=== PATIENT | male | born 1960 | race Caucasian/White ===

== ENCOUNTER 2018-01-12 11:35 | Day surgery (SDC) | END 2018-01-12 18:15 | disposition home or self-care (01) ==

== ENCOUNTER 2018-06-12 06:09 | Day surgery (SDC) | payer OTHER ==
[2018-06-09 16:55] VITALS: BMI 24.3
[~2018-06-12] VITALS: Ht 170.2 cm; Wt 67.5 kg
[2018-06-12] VITALS (11 sets, daily range): BP systolic 79–125; BP diastolic 56–76; PULSE 52–60; RESP 11–18; Ht 170.2 cm; Wt 67.5 kg
[2018-06-12] MEDS ORDERED: PROPARACAINE 0.5% 15 ML OPH RIGHT EYE SCH (07:00)
--- NOTE | 2018-06-12 07:23 | PREAC ---
Date/Time of Note Date/Time of Note DATE: 06/12/18 TIME: 07: Anesthesia Eval and Record Evaluation Time Pre-Procedure Interview DATE: 06/12/18 TIME: :22 Age 57 Sex male NPO: 8 hrs Preoperative diagnosis R eye pterygium Planned procedure R eye pterygium excision Past Medical History Past Medical History: Includes Cardio: Dyslipidemia Surgery & Anesthesia Issues No known issue Meds Anticoagulation: No Beta Alejo within 24 hr: No Reason Beta Alejo not given: Pt. not on B-Alejo No Active Prescriptions or Reported Meds Current Medications Proparacaine HCl (Alcaine 0.5%) 1 drop Q5MIN X 3 RIGHT EYE Last administered on 06/12/18at 07:16; Admin Dose 1 DROP; Start 06/12/18 at 07:00; Stop 06/12/18 at 17:00 Meds reviewed: Yes Allergies Coded Allergies: Milk Containing Products (Verified Allergy, Unknown, 01/12/18) almond (Verified Allergy, Unknown, 01/12/18) olive extract (Verified Allergy, Unknown, 01/12/18) Allergies Reviewed: Yes Labs/Studies Labs Reviewed: Reviewed by anesthesiologist test: N/A Studies: ECG (nml nsr), CXR (no active dz) Pre-procedure Exam Airway: Adequate mouth opening, Adequate thyromental dist Mallampati: Mallampati II Teeth: Normal Lung: Normal Heart: Normal ASA Physical Status ASA physical status: 2 Emergency: None Planned Anesthetic General/MAC: MAC Pre-operative Attestations Prior to commencing anesthesia and surgery, the patient was re-evaluated, there was verification of: *The patient's identity *The results of appropriate recent lab work and preoperative vital signs *The above evaluation not changing prior to induction *Anesthetic plan, risk benefits, alternative and complications discussed with patient/family; questions answered; patient/family understands, accepts and wishes to proceed. SANDRA YO Jun 12, 2018 07:23
[2018-06-12] MEDS ORDERED: LABETALOL HCL 20MG INJ IV PRN (07:30)
[2018-06-12] MEDS ORDERED: DIPHENHYDRAMINE 50 MG INJ IV PRN (07:30)
[2018-06-12] MEDS ORDERED: hydrALAzine 20 MG INJ IV PRN (07:30)
[2018-06-12] MEDS ORDERED: ACETAMINOPHEN 500 MG TAB PO PRN (07:30)
[2018-06-12] MEDS ORDERED: ONDANSETRON 4 MG INJ IV PRN (07:30)
[2018-06-12] MEDS ORDERED: FENTAnyl 50 MCG/ML VIAL IV PRN (07:30)
[2018-06-12] MEDS ORDERED: ALBUTEROL 0.083% (NEB) 2.5 MG/3 ML AMP HHN PRN (07:30)
[2018-06-12] MEDS ORDERED: OXYCODONE/ACETAMINOPHEN (5/325) TAB PO PRN (07:30)
[2018-06-12] MEDS ORDERED: ACETAMINOPHEN 325 MG TAB PO PRN (07:30)
[2018-06-12] MEDS ORDERED: BUPIVACAINE 0.5% (SDV) 30 ML INJ ONE (07:40)
[2018-06-12] MEDS ORDERED: TOBRAMYCIN/DEXAMETH 2.5 ML OPH ONE (07:41)
[2018-06-12] MEDS ORDERED: LIDOCAINE 2% (SDV) 5 ML INJ ONE (07:49)
[2018-06-12] MEDS ORDERED: PROPOFOL 20 ML ONE (07:49)
[2018-06-12] MEDS ORDERED: MIDAZOLAM 1 MG/ML 2 ML INJ ONE (08:23)
[2018-06-12] MEDS ORDERED: LIDOCAINE 2%/EPI (MDV) 20ML INJ INJ ONE (08:27)
[2018-06-12] MEDS ORDERED: FENTAnyl 50 MCG/ML VIAL ONE (08:28)
--- NOTE | 2018-06-12 08:33 | HPN ---
Date/Time of Note Date/Time of Note DATE: 06/12/18 TIME: 08:32 Interval H&P Admission Note Pt. seen H&P reviewed: No system changes YANELIS SHAW MD Jun 12, 2018 08:33
--- NOTE | 2018-06-12 09:22 | PAC ---
Date/Time of Note Date/Time of Note DATE: 06/12/18 TIME: 09:21 Post-Anesthesia Notes Post-Anesthesia Note Last documented vital signs Vital Signs Date Temp Pulse Resp B/P (MAP) Pulse Ox O2 O2 Flow FiO2 Time Delivery Rate 06/12/18 98.4 99.6 63 18 97/66 99 RA 07:31 091 9 06/12/18 52 18 97/68 97 Room Air 07:21 (78) Activity: WNL Respiratory function: WNL Cardiovascular function: WNL Mental status: Baseline Pain reasonably controlled: Yes Hydration appropriate: Yes Nausea/Vomiting absent: Yes SANDRA YO Jun 12, 2018 09:22
[2018-06-12] MEDS ORDERED: TOBRAMYCIN/DEXAMETH 3.5 GM OPH OINT ONE (09:35)
[2018-06-12] MEDS ORDERED: TETRACAINE 0.5% 4 ML OPH ONE (09:36)
--- NOTE | 2018-06-12 09:44 | OPR ---
Date/Time of Note Date/Time of Note DATE: 06/12/18 TIME: 09:38 Operative Report Procedure Date: Jun 12, 2018 Preoperative Diagnosis Visually significant Pterygium Right Eye Postoperative Diagnosis Visually significant Pterygium Right Eye Operation/Procedure Performed Pterygium Resection with Amniotic membrane Graft Right Eye Surgeon see signature line [employer] Health Manager Nicholas Anesthesia Type: MAC Anesthesiologist: SANDRA YO Tourniquet Time: None Estimated Blood Loss: minimal Transfusion none Specimen to Pathology Grafts/Implants none Tubes/Drains None Complications none Pt Condition Post Procedure: stable Disposition: PACU Indications Indications for Surgery: Patient has a persistent Pterygium with significant Redness, discomfort and swelling and signs of progression in the operative eye. The medical treatment has failed to relieve the symptoms. The progressive nature of the pterygium and the induced Corneal distortion poses a significant loss in the quality of vision. Procedure Description The patient was identified and operative eye was marked after confirming with the patient in the pre-op room. The risks, benefits and alternatives of the procedure were discussed and an informed consent was signed bythe patient. Three applications of Tetracaine eyedrops at 5 minutes interval were applied to the operative eye. Patient was brought in the operative room and attached to the monitoring devices. IV line was secured and IV sedation was given by the Anesthesiologist. The operative eye was cleaned and draped in a sterile fashion. Eyelid speculum was placed. Extent of the Pterygium was noted. Lidocaine 2% was injected in the sub-conjunctival space below the head of the Pterygium to enhance the Local Anesthesia. A traction suture in the peripheral cornea away from the head of the Pterygium was placed with 6 zero Vicryl suture. The eye was rotated and fixed with the traction suture to expose the Pterygium head fully. The head of the Pterygium was teases off the Corneal surface with Blunt dissection with .12 foreceps and small deng scissors using its blunt end. The head of the Pterygium was resected and sent for Pathology Lab for evaluation. The corneal surface was scrapped to remove all the fibrous remnants of the head of Pterygium and corneal ester was applied to get a smooth surface. Hemostasis was achieved with application of Cautry. A rectangular area of exposed sclera was noted after the Conjunctival retraction after Pterygium head resection which was measured with calipers. An amniotic membrane graft of the same size was cut and placed over the area. Tissel glue was applied at the scleral bed and the undersurface of the graft and it was glued in place. The speculum was removed. Tobradex eye ointment was instilled and the eye patch and a shield was taped over closed eye. Patient was transferred to the recovery room in a stable condition. patient tolerated the procedure very well and no complications were encountered. After monitoring in PACU the patient was discharged to home once the discharge criteria were met. Patient was given written post op care instruction and follow up appointments. YANELIS SHAW MD Jun 12, 2018 09:44
== END 2018-06-12 11:05 | disposition home or self-care (01) ==
LOC: SDS 06:09
PROVIDERS: ATTEND Ophthalmology
DX: H11.001 Unspecified pterygium of right eye (principal); E78.5 Hyperlipidemia, unspecified
CPT/HCPCS: 65426; J2250; J3010; Z7610